=== PATIENT | female | born 1945 | race Caucasian/White ===

== ENCOUNTER 2024-04-28 11:05 | Day surgery (SDC) | payer MEDICARE, OTHER, SELFPAY ==
[2024-04-28] VITALS (22 sets, daily range): BP systolic 82–139; BP diastolic 45–67; BMI 27.9
[2024-04-28 11:28] LABS: Hematocrit 39.1 % (37.0-47.0); Hemoglobin 13.1 g/dL (12.0-16.0); Mean Corp Hgb Conc. 33.5 g/dL (33.0-37.0); Mean Corpuscular Hgb 30.3 pg (27.0-31.0); Mean Corpuscular Volume 90.3 fL (81.0-99.0); Mean Platelet Volume 9.9 fL (7.4-10.4); Platelet Count 231 10^3/uL (130-400); Red Blood Cell Count 4.33 10^6/uL (4.20-5.40); Red Cell Dist. Width 12.9 % (11.5-14.5); White Blood Cell Count 6.6 10^3/uL (4.8-10.8)
[2024-04-28 11:51] LABS: ALT (SGPT) 15 U/L (0-35); AST (SGOT) 24 U/L (14-36); Albumin 4.4 g/dl (3.5-5.0); Alkaline Phosphatase 56 U/L (38-126); Blood Urea Nitrogen 19 mg/dl (7-17); Chloride 101 mmol/L (98-107); Glucose 137 mg/dl (70-99); Potassium 3.9 mmol/L (3.5-5.1); Sodium 140 mmol/L (135-145); Total Bilirubin 0.5 mg/dl (0.2-1.3); eGFR 57.66
[2024-04-28 12:01] LABS: Carbon Dioxide 28 mmol/L (22-30)
[2024-04-28] MEDS: LOW STRENGTH ASPIRIN 81 MG PO (12:21)
--- NOTE | 2024-04-28 12:42 | PTCARENOTE ---
Addendum entered by Kay Herrera RN 04/28/24 13:08:
Pt did not tell RN placing IV (not pt's assigned nurse but nurse helping) that she could not have blood pressures or IV's in left arm.
Original Note:
Pt states she has a history of left breast cancer with lumpectomy from 4 years ago. Pt states she has never been told she couldn't have blood pressures or IV's in the left arm. Pt states she gets blood pressures and lab draws in left arm at home.
--- NOTE | 2024-04-28 13:07 | PTCARENOTE ---
Pt's son at pt bedside. Pt's son states it was mentioned not to have blood pressures and IV draws on left arm. New 20 jelco placed in right arm. 20 jelco d/c'd from left arm.
--- NOTE | 2024-04-28 14:33 | PTCARENOTE ---
Received pt from [facility] at 1427 with pt c/o nausea and slightly lightheaded. Pt's head of bed is flat. Pt's blood pressure is 92/62. Dr Barry at pt bedside. Zofran and NSS bolus given by [facility] [employer] staff as ordered by Dr Barry. Will continue to
monitor.
--- NOTE | 2024-04-28 15:00 | PTCARENOTE ---
Pt states she is feeling better. Pt denies nausea. HOB elevated. Pt's son at pt bedside. Will continue to monitor.
[2024-04-28] MEDS: PLAVIX 75 MG PO (15:02)
[2024-04-28] MEDS: NSS 1000 IV (15:05)
[2024-04-28] MEDS: NSS 250 IV (15:30)
--- NOTE | 2024-04-28 15:40 | ITS.CL.CATH ---
Assistant Teacher - Catheterization
Cardiac Catheterization
Procedure Report:
CARDIAC CATHETERIZATION REPORT
Date of Procedure: 04/28/2024
Referring: Aubrey Ledesma MD
Indication: Worsening exertional dyspnea
�
HEMODYNAMIC DATA
AO: 156/90
LV: 164/15
There is a gradient of about 8-10 mmHg across the aortic valve. This may be some various as there is no significant calcification of the valve leaflets. This can be adjudicated by an echocardiogram
�
LEFT VENTRICULOGRAPHY: Normal segmental wall motion with EF 64%
�
CORONARY ANGIOGRAPHY
Dominance: Right
Left Main: Normal
LAD: The LAD is severely calcified with 30-40% calcific proximal stenosis and otherwise mild luminal irregularities in the LAD proper. The large first diagonal branch has 30-40% mid stenosis.
Circumflex: Moderate calcification with 30% mid circumflex stenosis. OM1 is tiny. OM 2 is large with 40% proximal stenosis. The circumflex continues on to supply a large first left posterolateral and several small distal left posterolateral
branches
RCA: The RCA is severely calcified. There is a long stented segment from the very proximal RCA through the mid vessel and a second focal stented segment in the distal RCA. The ostium of the RCA has 20% stenosis within the stent and the remainder
of the stented segment is widely patent with no significant restenosis. The RCA terminates with a relatively large RPDA with 30-40% proximal stenosis
�
Closure Device: None-the procedure was performed via the right radial artery. Of note, the right radial artery pulse was very faint and I was surprised that we were able to use this as an access site. It is unlikely that this will be usable for
future procedures
�
Radiation (mGy): 281
DAP (cm2.Gy): 16.7
Fluoroscopy time: 3.0 minutes
�
CONCLUSIONS
1:�Systemic hypertension
2:�Possible mild aortic stenosis-this should be evaluated with echocardiography.
3. 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 All three RCA stents remain patent.
4. Continue medical therapy. We will increase metoprolol from 25 mg once daily to 25 mg twice daily
�
�
Copy to: Aubrey Ledesma MD, Jose Phelan DO ([address], [address], [place], [address])
�
Jose Enrique Barry MD, [facility], [facility]
== END 2024-04-28 17:33 | disposition home or self-care (01) ==
LOC: CATH 11:05
PROVIDERS: ATTENDING PHYSICIAN Internal Medicine Cardiovascular Disease; FAMILY PHYSICIAN Family Medicine; OTHER PHYSICIAN Internal Medicine Cardiovascular Disease
DX: I25.10 Atherosclerotic heart disease of native coronary artery without angina pectoris (principal); R06.09 Other forms of dyspnea; I10 Essential (primary) hypertension; Z95.5 Presence of coronary angioplasty implant and graft; Z79.02 Long term (current) use of antithrombotics/antiplatelets; Z79.82 Long term (current) use of aspirin
CPT/HCPCS: 80053; 85027; 93284; 93458; C1894; Q9967